=== PATIENT | male | born 1990 | race Caucasian/White ===

== ENCOUNTER 2018-05-23 15:59 | Emergency (ER) | payer OTHER, MEDICAID, SELFPAY ==
[2018-05-23 16:11] VITALS: BP 128/8; PULSE 111; RESP 16; TEMP 36.6; O2SAT 99; BMI 25.1
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
[2018-05-23 17:19] VITALS: BP 134/79; PULSE 99; O2SAT 97
== END 2018-05-23 17:20 | disposition home or self-care (01) ==
PROVIDERS: Emergency Provider Emergency Medicine
DX: L03.113 Cellulitis of right upper limb (principal)
CPT/HCPCS: 99282